=== PATIENT | male | born 1980 | race Caucasian/White ===

== ENCOUNTER 2016-12-13 10:48 | Day surgery (SDC) | payer OTHER ==
[2016-12-08 10:34] VITALS: BMI 28.2
[2016-12-13] MEDS ORDERED: MIDAZOLAM HCL 2 MG/2 ML SINGLE DOSE VIAL ONE (12:40)
[2016-12-13] MEDS ORDERED: PROPOFOL 20 ML ONE (12:40)
[2016-12-13 13:43] VITALS: PULSE 73; TEMP 97.4
[2016-12-13 14:05] VITALS: BP 143/87
--- NOTE | 2016-12-14 17:36 | OP ---
DATE OF OPERATION: 12/13/2016 OPERATIVE PROCEDURE: Left hand mass excision. PREOPERATIVE DIAGNOSIS: Left hand mass. POSTOPERATIVE DIAGNOSIS: Left hand mass. SURGEON: Shakeel Arriaza MD ANESTHESIA: Local for sedation. COMPLICATIONS: None. ESTIMATED BLOOD LOSS: Minimal. INDICATION FOR PROCEDURE: Patient is a 36-year-old male with the above finding indicated for operative treatment. The risks, benefits, alternatives were discussed with the patient at length and proper informed consent was obtained. After positive identification of the patient and the correct operative site, the patient was brought to the operating room and placed supine on the operating room table. All bony prominences were well padded. Sedation was given by the anesthesiologist. Local anesthesia was given with 2% lidocaine. The left upper extremity was prepped and draped in the usual sterile fashion. A well-padded tourniquet was placed over a sterile prep. An Esmarch bandage was used to exsanguinate the left upper extremity. A tourniquet was inflated to 250 mmHg. A longitudinal incision was made over the dorsal ulnar aspect of the hand where the mass was present. Incision was made sharply on the skin with blunt and sharp dissection of the subcutaneous tissues. The mass was identified and excised in whole and was sent for pathological evaluation. Of note, it was a cystic structure with a thickened, pasty, mustard-yellow tissue material within it. The wound was irrigated with saline and repaired with a 5-nylon suture. A sterile dressing were applied. The patient was reversed from sedation and brought to the recovery room in stable condition. He tolerated the procedure well. SHAKEEL ARRIAZA M.D. AMIE/[id number]
--- NOTE | 2016-12-15 16:17 | PATH ---
Surgical Pathology Report Patient Name: YEE URRUTIA Med. Rec. #: [id number] /Age/Gender: 1980 (Age: 36) / M Account: [id number] Location: [facility] AMBULATORY Taken: 12/13/2016 Received: 12/14/2016 Reported: 12/15/2016 Physicians: Shakeel Mccoy M.D. Specimen(s) Received LEFT HAND MASS Clinical History Left hand mass Final Diagnosis HAND, LEFT, MASS, EXCISION: FIBROCOLLAGENOUS TISSUE WITH GRANULATION TISSUE FORMATION, FOREIGN BODY GIANT CELL REACTION AND FOREIGN BODY, CONSISTENT WITH SPLINTER. Electronically Signed Stephanie Scanlon M.D. Gross Description Received in formalin labeled "left hand mass," is a 2.0 x 1.0 x 0.4 cm varela-yellow, encapsulated portion of soft tissue. Sectioning reveals a lumen containing yellow pasty material as well as a 1.5 cm in length x 0.1 cm in diameter brown, wooden foreign body, consistent with a splinter. The soft tissue is entirely submitted in one cassette. 12/14/2016 [facility]12/14/2016
== END 2016-12-13 14:10 | disposition home or self-care (01) ==
LOC: FASU 10:48
PROVIDERS: ATTEND Orthopaedic Surgery Hand Surgery
PROC: 0JBK0ZZ Excision of Left Hand Subcutaneous Tissue and Fascia, Open Approach (ICD-10-PCS; principal; 2016-12-13 13:04)
DX: D21.11 Benign neoplasm of connective and other soft tissue of right upper limb, including shoulder (principal)
CPT/HCPCS: 88304-TC